=== PATIENT | female | born 1995 | race Caucasian/White ===

== ENCOUNTER 2019-03-28 07:56 | Inpatient (IN) | payer OTHER ==
[~2019-03-28] VITALS: Ht 162.7 cm; Wt 122.3 kg
[2019-05-03] VITALS (18 sets, daily range): BP systolic 80–116; BP diastolic 47–75; PULSE 60–86; TEMP 97.8–98.5
[2019-05-03 06:42] LABS: BASO % 0.1 % (0.0-2.0); EOS % 0.3 % (0-4.0); GRAN # 9.9 (1.4-6.5); GRAN % 78.8 % (42.2-75.2); HEMATOCRIT 33.9 % (37.0-47.0); HEMOGLOBIN 10.9 g/dl (12.5-16.0); LYMPH # 2.1 (1.2-3.4); LYMPH % 16.3 % (20.0-51.0); MEAN CELL VOLUME 86 fl (80.0-100.0); MEAN CORPUSCULAR HEMOGLOBIN 28 pg (27.0-31.0); MEAN CORPUSCULAR HGB CONC 32 g/dl (33.0-37.0); MEAN PLATELET VOLUME 10.5 fl (7.4-10.4); MONO # 0.5 (0.1-0.6); MONO % 3.7 % (1.7-9.3); PLATELET COUNT 196 K/mm3 (130-400); RED BLOOD COUNT 3.93 M/mm3 (4.10-5.30); REDCELL DISTRIBUTION WIDTH-CV 13.9 % (11.5-14.5)
[2019-05-04 02:08] VITALS: BP 105/40; PULSE 68
[2019-05-04 07:50] VITALS: BP 110/45; PULSE 65; TEMP 98.3
--- NOTE | 2019-05-04 09:51 | NUR ---
Initial visit; Parents thanked Small Business Consultant for offering congratulations and God's blessings for the of their daughter. Small Business Consultant thanked family for choosing [facility].
[2019-05-04 16:10] VITALS: BP 94/59; PULSE 100; TEMP 98.4
[2019-05-04 19:25] VITALS: BP 115/46; PULSE 80; TEMP 98.1
[2019-05-05 07:25] VITALS: BP 102/47; PULSE 76; TEMP 98.1
[2019-05-05] MEDS ORDERED: IBU800 M1 PO (08:42)
[2019-05-05] MEDS ORDERED: PERCOCET 325 MG1 TA2 PO (08:43)
--- NOTE | 2019-05-05 12:29 | NUR ---
Rests in bed, alert. Request pain medication. Percocet 5/325 mg two given as ordered.
[2019-05-05 17:31] VITALS: BP 101/48; PULSE 79; TEMP 98.5
[2019-05-05 20:30] VITALS: BP 119/59; PULSE 87; TEMP 98.3
[2019-05-06 07:00] VITALS: BP 117/65; PULSE 93; TEMP 98
[2019-05-06 16:30] VITALS: BP 105/57; PULSE 84; TEMP 98
[2019-05-06 20:30] VITALS: BP 112/53; PULSE 86; TEMP 98.8
[2019-05-07 09:15] VITALS: BP 116/50; PULSE 82; TEMP 97.9
== END 2019-05-07 11:50 | disposition home or self-care (01) | DRG 788 ==
LOC: OB 05-03 05:36 → LDRO 05-18 07:55 → EDSTATUS 05-18 10:25
PROVIDERS: ADMIT Obstetrics & Gynecology
PROC: 10D00Z1 Extraction of Products of Conception, Low, Open Approach (ICD-10-PCS; principal; 2019-05-03)
DX: O34.211 Maternal care for low transverse scar from previous cesarean delivery (principal); O99.62 Diseases of the digestive system complicating childbirth; K21.9 Gastro-esophageal reflux disease without esophagitis; O99.214 Obesity complicating childbirth; E66.01 Morbid (severe) obesity due to excess calories; O69.81X0 Labor and delivery complicated by cord around neck, without compression, not applicable or unspecified; Z37.0 Single live birth; Z3A.40 40 weeks gestation of pregnancy
CPT/HCPCS: J0690; J1885; J2250; J2370; J2405; J2590; J3010; J7120

== ENCOUNTER 2021-01-15 09:30 | Inpatient (IN) | payer OTHER ==
[~2021-01-15] VITALS: Ht 165.1 cm; Wt 129.5 kg
[~2021-01-15 09:30] MED LIST: IBU800 M1 PO; PERCOCET 325 MG1 TA2 PO
[2021-01-15] MEDS ORDERED: TYLENOL 500MG500 MG PO (09:51)
[2021-01-15 09:55] VITALS: BP 130/59; PULSE 99; TEMP 98.1
--- NOTE | 2021-01-15 09:55 | NUR ---
SVE /-3. Amnitrace negative, exam dry, appears to be beaded sweat on inside of legs. Also, note, patient perineum bright red in color. Denies any irritation.
--- NOTE | 2021-01-15 10:05 | NUR ---
Amnisure completed per telephone order, and sent to lab for analysis.
--- NOTE | 2021-01-15 10:38 | NUR ---
Allowed off EFM to go to bathroom. Discussed Roles would be up over noon hour to discuss continued plan of care, but for now will continue with EFM. Verbalizes understanding.
--- NOTE | 2021-01-15 11:37 | NUR ---
Allowed off of EFM for bathroom break @ this time.
--- NOTE | 2021-01-15 11:43 | NUR ---
in. Discusses results of BPP, SAMMI of today, in comparison to yesterday's. Discusses plan of care will be to give initial dose of betamethasone IM to help mature lungs, and will plan to repeat dose in 24 hours. Explains she will consult pediatrian team to see if they recommend transferring her to another facility prior to delivery, or if they are comfortable delivering infant here. Discusses possibility of transferring to [facility] in [place] per ambulance if team is not comfortable keeping her here. Verbalizes understanding. Voices concerns that they have no family nearby, so would need to see if in-laws can fly in to care for children on short notice. States she would rather stay here if possible, and be discharged to go see in [place], if infant were to require shipment to [facility] following delivery.
[2021-01-15 11:45] VITALS: BP 117/55; PULSE 85
[2021-01-15 12:32] LABS: BASO % 0.2 % (0.0-2.0); EOS # 0.1 (0.0-0.7); EOS % 0.5 % (0-4.0); GRAN # 10.4 (1.4-6.5); GRAN % 81.6 % (42.2-75.2); HEMOGLOBIN 11.4 g/dl (12.5-16.0); LYMPH # 1.6 (1.2-3.4); LYMPH % 12.8 % (20.0-51.0); MEAN CELL VOLUME 86 fl (80.0-100.0); MEAN CORPUSCULAR HEMOGLOBIN 28 pg (27.0-31.0); MEAN CORPUSCULAR HGB CONC 33 g/dl (33.0-37.0); MEAN PLATELET VOLUME 10.3 fl (7.4-10.4); MONO # 0.5 (0.1-0.6); PLATELET COUNT 224 K/mm3 (130-400); RED BLOOD COUNT 4.04 M/mm3 (4.10-5.30); REDCELL DISTRIBUTION WIDTH-CV 13.2 % (11.5-14.5)
[2021-01-15 12:33] LABS: HEMATOCRIT 34.7 % (37.0-47.0)
--- NOTE | 2021-01-15 15:00 | NUR ---
Ambulates to post room 222. Instruction given to continue kick counts. Discussed plan of care to include repeat biophysical profile tomorrow, non-stress test 2x daily, repeat dose of Betamethasone 01/16, tentatively scheduled for repeat 01/17 am. Verbalizes understanding. Denies any questions or concerns at this time.
--- NOTE | 2021-01-15 17:20 | NUR ---
has just finished discussing potential risks of delivery. Patient verbalizes understanding. Denies any questions or concerns at this time.
[2021-01-16 04:45] VITALS: TEMP 97.9
[2021-01-16 04:48] VITALS: BP 97/59; PULSE 79; TEMP 97.9
[2021-01-16 07:20] VITALS: BP 122/58; PULSE 90; TEMP 98.2
--- NOTE | 2021-01-16 07:43 | NUR ---
NST begun @ 0716, complete @ [id number]. Reactive strip noted. biomedical instrument technician reports she will be here early this am to repeat BPP.
--- NOTE | 2021-01-16 07:54 | NUR ---
armored service technician here for repeat BPP.
--- NOTE | 2021-01-16 12:01 | NUR ---
THIS RN TOOK OVER CARE OF THIS PATIENT AROUND 1045AM.
--- NOTE | 2021-01-16 12:21 | NUR ---
Initial visit attempt; Physician with patient. Glass Smoother left card offering information regarding the availability of spiritual care at our building.
== END 2021-01-16 14:02 | disposition home or self-care (01) | DRG 833 ==
LOC: LDRO 09:30 → LDR 09:31 → LDRO 10:48 → OB 15:00 → LDRO 15:01 → OB 15:02
PROVIDERS: Obstetrics & Gynecology; ADMIT Obstetrics & Gynecology
DX: O41.03X0 Oligohydramnios, third trimester, not applicable or unspecified (principal); Z3A.34 34 weeks gestation of pregnancy; E66.9 Obesity, unspecified; O99.213 Obesity complicating pregnancy, third trimester; O34.211 Maternal care for low transverse scar from previous cesarean delivery
CPT/HCPCS: J0702; J7040

== ENCOUNTER 2021-01-18 17:12 | Outpatient (CLI) | payer OTHER ==
[~2021-01-18] VITALS: Ht 165.1 cm; Wt 130.0 kg
[~2021-01-18 17:12] MED LIST changes: +TYLENOL 500MG500 MG PO
--- NOTE | 2021-01-18 17:20 | NUR ---
0- PATIENT HERE FOR LEAKING OF FLUID. PATIENT WAS SEEN BY [facility] YESTERDAY. PATIENT STATES " A CLEAN BILL OF HEALTH WAS GIVEN. PATIENTS SVE AMNITRACE POSTIIVE, AND SVE /-3. AT BEDSIDE
[2021-01-18 17:59] LABS: HEMOGLOBIN 11.1 g/dl (12.5-16.0); MEAN CELL VOLUME 85 fl (80.0-100.0); MEAN CORPUSCULAR HEMOGLOBIN 28 pg (27.0-31.0); MEAN CORPUSCULAR HGB CONC 33 g/dl (33.0-37.0); PLATELET COUNT 240 K/mm3 (130-400); RED BLOOD COUNT 3.98 M/mm3 (4.10-5.30); REDCELL DISTRIBUTION WIDTH-CV 13.4 % (11.5-14.5)
[2021-01-18 18:00] VITALS: BP 141/67; PULSE 88; TEMP 98
--- NOTE | 2021-01-18 18:15 | NUR ---
181- BEDSIDE SHIFT REPORT GIVEN AND CARE ASSUMED. PT SITTING IN BED WITH AT BEDSIDE. 1822- DECELERATION IN HEART RATE UNASSOCIATED WITH CONTRACTION. 1824- PT UP TO BATHROOM. 1829- RADIOGRAPHER TECHNOLOGIST AT BEDSIDE TO DISCUSS TRANSFER AND CONSENTS SIGNED. 183 AND 183- DECELERATION IN HEART RATE UNASSOCIATED WITH CONTRACTION. 185- PT UP TO BATHROOOM. [id number]- MODERATE VARIABILITY WITH NO DECELERATIONS NOTED. 1909- EMS TRANSPORT HERE FOR PT. PT OFF MONITORS AND UP TO BATHROOM AGAIN. PAD AND PANTIES PROVIDED. REPORT GIVEN TO EMS STAFF AND QUESTIONS ANSWERED. EMS DISCUSSES PLAN OF CARE WITH PT AND . 1914- EMS PERSONNEL TRANSFER PT TO [facility]. 1919- [facility] CALLED AND REPORT GIVEN TO CUCO ALCARAZ RN. 1924- PT DISMISSED PER EMS [facility] FOR TRANSFER TO [facility].
[2021-01-18 18:30] VITALS: BP 118/55; PULSE 95
[2021-01-18 18:36] LABS: BASOPHIL 1 % (0-2); EOSINOPHIL 1 % (0-4); HYPOCHROMIA 1+; LYMPHOCYTE 12 % (20.0-51.0); METAMYELOCYTE 2 % (0-0); NEUTROPHILS 82 % (42.0-75.2); PLATELET ESTIMATE DECREASED (NORMAL)
[2021-01-18 19:10] VITALS: BP 121/59; PULSE 84
== END 2021-01-18 19:25 | disposition short-term general hospital (02) ==
LOC: LDRO 17:12 → LDR 17:34 → LDRO 19:25
PROVIDERS: Obstetrics & Gynecology
DX: O42.913 Preterm premature rupture of membranes, unspecified as to length of time between rupture and onset of labor, third trimester (principal); Z3A.34 34 weeks gestation of pregnancy
CPT/HCPCS: OP; J7120